=== PATIENT | male | born 1940 | race Caucasian/White ===

== ENCOUNTER 2016-08-25 17:41 | Inpatient (IN) | payer MEDICARE, OTHER ==
[~2016-08-25] VITALS: Ht 198.1 cm; Wt 83.0 kg
[2016-08-25] MEDS ORDERED: 0.9% Sodium Chloride 1,000 ML IV ONE ×3 (17:52→20:10)
--- NOTE | 2016-08-25 18:01 | ED.REPORT ---
HPI-Altered Mental Status Date of Service August 25, 2016 ED Provider: Harish Reed MD The pt is a 76 y/o male w/ a hx of a cerebellar stroke presenting to the ED complaining of pain on his R side onset this morning. He woke up this morning, took a shower, and vomited right after. He was given 2 500 mg Tylenol at 1400 to help with the pain he was experiencing in his side. Per family, he felt fine until 1630 where he began shaking from feeling cold, confused, and had an episode of vomiting. His daughter took his temperature which she reports being 97.5 degrees Fahrenheit earlier today. The pt denies pain, nausea, cough, SOB, rash, or dysuria currently. He had a bladder infection while in inpatient rehab around the 26 of July and was given levofloxacin. His family member reports his urine usually being dark because he does not enjoy drinking water. His last stroke was on the 03 of July for which he was put in the ICU for 48 hours. Nursing Notes Stated Complaint: ALTERED LOC Chief Complaint: R sided pain Nursing Notes Reviewed: Yes ([email or web address] not reconciled) Allergies: Coded Allergies: codeine (Verified Allergy, Unknown, 08/25/16) cefprozil (Verified Adverse Reaction, Severe, Nausea,Vomiting, 08/25/16) Scheduled Allopurinol (Allopurinol) 100 Mg Tablet 200 MG PO QAM Cholecalciferol (Vitamin D3) (Vitamin D3) 2,000 Unit Capsule 2,000 UNIT PO QAM Famotidine (Famotidine) 20 Mg Tablet 20 MG PO BID Folic Acid/Multivits-Min/Lut (Multi-Vitamin Gummies) 1 Each Tab.chew 2 EACH PO QAM Lisinopril (Lisinopril) 20 Mg Tablet 20 MG PO BID Magnesium Chloride (Slow-Mag) 64 Mg Tablet 128 MG PO BID Metoprolol Tartrate (Metoprolol Tartrate) 75 Mg Tablet 75 MG PO BID Thiamine Mononitrate (Vitamin B-1) 100 Mg Tablet 100 MG PO QAM General Time Seen by MD: 17:59 Chief Complaint Other (R side pain ) Hx Obtained From: Patient, Other family... Arrived By: Walk-in Sudden in Onset?: Yes Onset Occurred: 5 - 8 hours ago Recent Healthcare: Recent doctor visit, Recent hospitalization Similar Sx Previous: Yes Past Medical History Past Medical History inguinal hernia Admitted for cerebellar hemorrhage to [facility] July 2014, 1 month hospitalization and rehabilitation UTI July 2014, treated with Levaquin Past Surgical History Tonsillectomy Inguinal hernia Smoking History Unknown if Ever Smoker Social History None reported Ambulatory Status Independent Review of Systems Pain on R side Respiratory: Denies: Non-productive cough, Shortness of breath GI: Reports: Vomiting Skin: Denies Rash Neurologic: Reports: Confusion Complete sys rev & neg: except as marked. Male: Denies Dysuria Physical Exam Initial Vital Signs Vital Signs (First) Date Time Temp Pulse Resp B/P Pulse Ox O2 Delivery O2 Flow Rate FiO2 08/25/16 18:23 37.4 100 20 137/63 93 Room Air Initial VS: Reviewed, Unavailable (no vitals on chart, ordered), Vital signs abnormal (this is indicated. She had a temperature of 39.4, [email or web address] says 37.4) General/Constitutional: Awake, Alert Alertness: Positive: Confused (Slightly) Head / Eyes: Atraumatic, Normocephalic Neck: Atraumatic, Supple, Full range of motion Respiratory / Chest: Atraumatic, Breath sounds NL, Breath sounds = bilat, No respiratory distress, No rales, No rhonchi, No wheezing Cardiovascular: Heart rate NL, Regular rhythm, Heart sounds NL Neurologic: Oriented X3, Speech NL No focal deficits Abdomen: Atraumatic, Soft, Non-tender Back: Atraumatic, Full range of motion Skin: Atraumatic, Color NL, No rash, Warm, Dry Upper Extremity / MS: Atraumatic, Full range of motion Interpretation & Diagnostics Lab Results Interpretation Result Diagram: 08/25/16 1800 08/25/16 1906 Test 08/25/16 18:00 08/25/16 19:05 08/25/16 19:06 White Blood Count 14.2th/mm3 (3.8-10.1) Red Blood Count 4.23mil/mm3 (4.40-5.80) Hemoglobin 13.9g/dL (13.8-17.2) Hematocrit 40.8% (41.0-50.0) Mean Corpuscular Volume 96.5fL (81-100) Mean Corpuscular Hemoglobin 32.9pg (27.0-35.0) Mean Corpuscular Hemoglobin Concent 34.1% (32.0-37.0) Red Cell Distribution Width 13.5% (12.3-15.4) Platelet Count 197bil/L (150-400) Neutrophils (%) (Auto) 92.1% (40-74) Lymphocytes (%) (Auto) 3.9% (14-46) Monocytes (%) (Auto) 3.2% (4-12) Eosinophils (%) (Auto) 0.1% (0-5) Basophils (%) (Auto) 0.3% (0-3) Prothrombin Time 11.1sec (8.1-12.5) Prothromb Time International Ratio 1.04ratio Urine Color Yellow (YELLOW) Urine Appearance Hazy (CLEAR,HAZY) Urine pH 5.5 (5.0-8.0) Urine Specific [place] 1.025 (1.003-1.035) Urine Protein 100mg/dL (NEG,TRACE) Urine Glucose (UA) Negativemg/dL (NEGATIVE) Urine Ketones 15mg/dL (NEGATIVE) Urine Occult Blood Large (NEGATIVE) Urine Nitrite Positive (NEGATIVE) Urine Bilirubin Negative (NEGATIVE) Urine Urobilinogen Normalmg/dL (NORMAL) Urine Leukocyte Esterase Moderate (NEGATIVE) Urine RBC >50/hpf (0-2) Urine WBC >50/hpf (0-5) Urine Epithelial Cells Few/hpf (NONE-MOD) Urine Crystals None seen (NONE SEEN) Urine Bacteria Many/hpf (NONE-FEW) Urine Hyaline Casts None/lpf (NONE) Urine Granular Casts None seen (NONE SEEN) Urine Waxy Casts None seen (NONE SEEN) Urine Red Blood Cell Casts None seen (NONE SEEN) Urine White Blood Cell Casts None seen (NONE SEEN) Urine Mucus None seen (None Seen) Urine Trichomonas None seen (NONE SEEN) Urine Yeast None (NONE SEEN) Urinalysis Comment None Urine Culture Reflexed Indicated Sodium Level 140mEq/L (134-144) Potassium Level 3.8mEq/L (3.5-5.2) Chloride Level 101mEq/L (97-108) Carbon Dioxide Level 22mmol/L (18-29) Blood Urea Nitrogen 14mg/dL (8-27) Creatinine 0.89mg/dL (0.76-1.27) Estimat Glomerular Filtration Rate 89mL/min (>59) Glucose Level 188mg/dL (60-99) Lactic Acid Level 1.4mmol/L (0.4-2.0) Calcium Level 9.2mg/dL (8.5-10.1) Magnesium Level 1.3mg/dL (1.6-2.6) Total Bilirubin 0.9mg/dL (0.0-1.2) Aspartate Amino Transf (AST/SGOT) 18U/L (0-50) Alanine Aminotransferase (ALT/SGPT) 11U/L (0-44) Alkaline Phosphatase 70U/L (25-160) Troponin T < 0.010ug/L (0.0-0.011) Total Protein 5.9g/dL (6.4-8.4) Albumin 3.3g/dL (3.4-5.0) Lipase 15U/L (13-60) Procalcitonin 2.37ng/mL (0.00-0.08) Lab Results Interpretation: CBC positive leukocytosis CMP normal UA positive with all markers for infection Lactic acid normal Blood cultures 2 pending 90s and low-replacement apartment. ECG Interpretation ECG Interpretation: Rate 92 Normal sinus rhythm Q waves inferiorly, anteriorly, but no acute ischemic changes PVC No prior EKG records for comparison Time: 19:28 Interpreted by: ED physician X-Ray Chest Interpretation Chest Xray Interpretation: IMPRESSION: No acute cardiopulmonary disease process. Dictated by: Bhumika Bishop MD, PhD on 08/25/2016 at 18:55 Approved by: Bhumika Bishop MD, PhD on 08/25/2016 at 18:56 View: Portable, 1 view Interpretation / Wet Read by: Interpret - Radiologist Re-Eval/Medical Decision Med Decision/Clinical Course This is a 76-year-old male recently hospitalized at [facility] for a cerebellar hemorrhage requiring a rehabilitation stay at [facility]. He is been home for the past month. He does note that he had a UTI last month, as spouse reports he had who had been recovering okay until today, he had an episode of nausea vomiting but that has not unusual for him, and then this afternoon developed jabari rigors chills. He also describes some dysuria, urgency and frequency. The also describes waxing and waning confusion concerning for delirium. Source of Hx: Old records (none in EMR) Re-Evaluation/Progress : Time of Eval: 20:01 Re-Evaluation/Progress Note: Pt rechecked. Informed pt of need for admission. Pt understands and agrees with plan for admission. All questions addressed. Consultation : Referral / Consult Name: Sidney Chery MD Consulted With: Hospitalist Call Returned at: 19:52 Rubber Heel And Sole Press Tender: Will see patient, Agrees with eval, Agrees with plan, Accepts admit Counseled Regarding: Diagnosis, Lab results, Need for admission Patient Discharge & Departure Impression: Primary Impression: Urinary tract infection Additional Impressions: Sepsis Delirium Hypomagnesemia Disposition: ADMITTED TO HOSPITAL Discharge Condition All VS Reviewed: Yes Condition: Stable Scribe Attestation Portions of this note were transcribed by Surjit Wayne. I, Dr. Reed personally performed the history, physical exam and medical decision-making; I reviewed and confirmed the accuracy of the information in the transcribed note. Signed by : Rolando Santiago, 08/25/16 and 1855. Harish Reed MD August 25, 2016 18:01 Surjit Wayne August 25, 2016 18:17
[2016-08-25 18:21] LABS: BASOPHILS % (AUTO) 0.3 % (0-3); EOSINOPHILS % (AUTO) 0.1 % (0-5); MONOCYTES % (AUTO) 3.2 % (4-12); Mean Corpuscular Hemoglobin 32.9 pg (27.0-35.0); Mean Corpuscular Volume 96.5 fL (81-100); NEUTROPHILS % (AUTO) 92.1 % (40-74); Platelet Count 197 bil/L (150-400)
[2016-08-25 18:23] VITALS: BP 137/63; PULSE 100; RESP 20; O2SAT 93
[2016-08-25 18:41] LABS: INR 1.04 ratio
--- NOTE | 2016-08-25 18:57 | DRSVH ---
PROCEDURE: X-RAY CHEST ONE VIEW, PORTABLE ([id number]) INDICATIONS: sepsis TECHNIQUE: One view of the chest was acquired. COMPARISON: None. FINDINGS: Surgical changes and devices: None. Lungs and pleura: No pleural effusions or pneumothorax. Lungs are clear. Mediastinum: Mediastinal contours appear normal. Heart size is normal. Bones and chest wall: No suspicious bony lesions. Overlying soft tissues appear unremarkable. IMPRESSION: No acute cardiopulmonary disease process. Dictated by: Bhumika Bishop MD, PhD on 08/25/2016 at 18:55 Approved by: hBumika Bishop MD, PhD on 08/25/2016 at 18:56
[2016-08-25 19:40] VITALS: BP 115/55; PULSE 91; RESP 19; O2SAT 94
[2016-08-25 19:43] LABS: APPEARANCE,URINE HAZY (CLEAR,HAZY); COLOR,URINE YELLOW (YELLOW); OCCULT BLOOD,URINE LARGE (NEGATIVE); PH,URINE 5.5 (5.0-8.0); UROBILINOGEN,URINE NORMAL (NORMAL)
[2016-08-25] MEDS ORDERED: THIA100T64 PO (19:43)
[2016-08-25] MEDS ORDERED: CHOL200047 PO (19:43)
[2016-08-25] MEDS ORDERED: LISI-567 PO (19:43)
[2016-08-25] MEDS ORDERED: FOLI-89 PO (19:43)
[2016-08-25] MEDS ORDERED: METO75TA PO (19:43)
[2016-08-25] MEDS ORDERED: FAMO20TA4 PO (19:43)
[2016-08-25] MEDS ORDERED: SLO64 PO (19:43)
[2016-08-25] MEDS ORDERED: ZYL100 PO (19:43)
[2016-08-25 19:45] LABS: Lipase 15 U/L (13-60); Magnesium 1.3 mg/dL (1.6-2.6)
[2016-08-25] MEDS ORDERED: Magnesium Sulf 2 Gm/50mL Water 2 GM in IV Premix 1 EACH IV ONE (19:50)
[2016-08-25 19:59] LABS: TROPONIN T < 0.010 ug/L (0.0-0.011)
[2016-08-25 20:00] VITALS: BP 117/55; PULSE 92; RESP 20; O2SAT 94
[2016-08-25] MEDS ORDERED: 0.9% Sodium Chloride 1,000 ML IV SCH (20:11)
[2016-08-25] MEDS ORDERED: Polyethylene Glycol (PEG) 17 Gm Powder PO PRN (20:15)
[2016-08-25] MEDS ORDERED: Ondansetron 2 mg/mL 2 mL Inj IVPUSH PRN (20:15)
[2016-08-25] MEDS ORDERED: Alum-Mag Hydrox-Simeth 30 mL Suspension PO PRN (20:15)
--- NOTE | 2016-08-25 21:13 | PCM.HPMED ---
Subjective Date of Service August 25, 2016 Primary Provider: Admitting Physician: Primary Care Physician: Lisandro Iglesias MD Attending Physician: Admit Status: From the Emergency Department Chief Complaint: Altered mental status with R sided pain History of Present Illness: The pt is a 76 y/o male w/ recent hx of a cerebellar stroke presenting to the ED complaining of nausea and vomiting with pain on his R side, onset this morning. Associated symptoms of chills. He was given 2 500 mg Tylenol at 1400 to help with the pain he was experiencing in his side, which patient reports totally resolved before he arrived to the emergency department. Per family, he felt fine until 1630 where he began shaking from feeling cold, confused, and had an episode of vomiting. He woke up this morning, took a shower, and vomited right after, which has been happening occasionally since the stroke, but had another episode of vomiting prior to the EMS arrival.His daughter took his temperature which she reports being 97.5 degrees Fahrenheit earlier today. The pt denies pain, nausea, cough, SOB, rash, or dysuria currently. He had a bladder infection while in inpatient rehab around the 26 of July and was given levofloxacin. His family member reports his urine usually being dark because he does not enjoy drinking water. His last stroke was on the 03 of July for which he was put in the ICU for 48 hours, reports of mild ataxia but no other residual deficits. Patient was saturating at 87% on room air upon EMS arrival, started on supplemental oxygen in transit. In ED vitals temperature 37.4 pulse 100 respiratory 20 blood pressure 137/63 pulse ox 93% on room air. Labs significant for WBC 14.2 glucose 188 lactic acid normal at 1.4 magnesium at 1.3. Chest x-ray negative for any acute cardiopulmonary disease processes. UA positive for nitrites and leukocyte esterase, bacteria, occult blood. Patient admitted for further management and treatment. Review of Systems: Respiratory: Denies: Non-productive cough, Shortness of breath GI: Reports: Vomiting Skin: Denies Rash Neurologic: Reports: Confusion MSK: Denies right sided pain Male: Denies Dysuria, endorses dard urine Complete sys rev & neg: except as marked. A comprehensive review of systems has been conducted with the patient and found to be negative except what is mentioned above or in the HPI. Allergies Coded Allergies: codeine (Verified Allergy, Unknown, 08/25/16) cefprozil (Verified Adverse Reaction, Severe, Nausea,Vomiting, 08/25/16) Home Medications Allopurinol (Allopurinol) 100 Mg Tablet 200 MG PO QAM Cholecalciferol (Vitamin D3) (Vitamin D3) 2,000 Unit Capsule 2,000 UNIT PO QAM Famotidine (Famotidine) 20 Mg Tablet 20 MG PO BID Folic Acid/Multivits-Min/Lut (Multi-Vitamin Gummies) 1 Each Tab.chew 2 EACH PO QAM Lisinopril (Lisinopril) 20 Mg Tablet 20 MG PO BID Magnesium Chloride (Slow-Mag) 64 Mg Tablet 128 MG PO BID Metoprolol Tartrate (Metoprolol Tartrate) 75 Mg Tablet 75 MG PO BID Thiamine Mononitrate (Vitamin B-1) 100 Mg Tablet 100 MG PO QAM PMH Bilateral inguinal hernia at Hx of kidney stones Hx of cerebellar bleeding stroke Surgical History Tonsillectomy Family History None known. Social History Hx Substance Use: No Hx Tobacco Use: Yes Smoking Status: Former Smoker (quit 30 years ago, 25 past history) Living Arrangement: with Family (local resident) Exam Vital Signs Vital Sign - Last Date Time Temp Pulse Resp B/P Pulse Ox O2 Delivery O2 Flow Rate FiO2 08/25/16 18:23 37.4 100 20 137/63 93 Room Air Exam GEN: Awake, alert, and in no acute distress, tired appearing elderly, moderately cooperative - can name date, year, president, location HEENT: NC/AT, no sclera icterus, dry mucous membranes Neck: Supple with full ROM, no JVD Respiratory: Breath sounds normal, CTAB, no rales, rhonchi or wheezing Cardiovascular: Regular rate & rhythm, Heart sounds normal Abdomen / GI: Soft, Non-tender, no guarding or rebound MSK:no CVA tenderness Skin: Warm, Dry Neurologic: Alert, Oriented x3, Nonfocal, speech normal, sensation and strength intact throughout Psychiatric: Mood/affect normal, Behavior normal, Normal thought content Extremity: No edema Lab and Diagnostics Result Diagram: 08/25/16 1800 08/25/16 1906 X-Rays, CTs and MRIs Chest Xray Interpretation: IMPRESSION: No acute cardiopulmonary disease process. 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 Associated symptoms of chills. Patient was found to have UTI, admitted for further treatment and management. In ED vitals temperature 37.4 pulse 100 respiratory 20 blood pressure 137/63 pulse ox 93% on room air. Labs significant for WBC 14.2. glucose 188, lactic acid normal at 1.4, magnesium at 1.3. Chest x-ray negative for any acute cardiopulmonary disease processes. UA positive for nitrites and leukocyte esterase, bacteria, occult blood. Patient admitted for further management and treatment. Sepsis (WBC 14.2, P20) with source of infection found at UTI, present on admission. Acute. - Procalcitonin elevated at 2.37, repeat as needed - Urine culture pending - Ceftriaxone started - IV fluid - repeat labs in am Acute on chronic hypomagnesemia, present on admission. - Patient has been taking 128 mg of magnesium chloride twice daily - Repleted in ED, will recheck - Continue home dose Slow-Mag - repeat labs in am Delirium, present on admission. Resolved - Patient alert and oriented 3 at time of interview Chronic conditions; Hypertension - continue home meds lisinopril, metoprolol Gout - continue home meds allopurinol GERD - continue home med famotidine Hx of kidney stones Hx of cerebellar bleeding stroke Acetaminophen-fever/headache/mild/moderate pain Antiemetics, as needed Bowel regimen, as needed. REPLY REPLY ALL FORWARD Timothy as unread Patient status: Patient was admitted under inpatient status with expected length of stay greater than two midnights due to severity of presenting symptoms , risk of adverse event, and complexity of treatment plan. Pain Evaluation: Adequate Pain Control VTE Prophylaxis: Sub-Q Heparin (Unfractionated) Resuscitation Status: CPR: Attempt Resuscitation Attending Statement The patient was seen and examined together with Dr. Cohen on 08/25 and I agree with the history, exam and plan as outlined in the note above. copies to: Lisandro Iglesias MD, Fumiko O DO August 25, 2016 20:09 Sidney Chery MD August 26, 2016 01:30
[2016-08-25] MEDS ORDERED: Lidocaine 2% 6mL Topical Jelly TOPICAL ONE (21:20)
[2016-08-25 21:45] VITALS: BP 86/55; PULSE 69; RESP 20; O2SAT 94
[2016-08-25] MEDS: 0.9% Sodium Chloride 1,000 ML IV SCH (21:51)
[2016-08-25] MEDS: Sodium Chloride LOK Flush 10 mL Syringe IVFLUSH SCH (21:51)
[2016-08-25] MEDS: cefTRIAXone Inj 2,000 MG in Dextrose 5% Minibag Plus 50 ML IV SCH (22:18)
[2016-08-25] MEDS: Magnesium Chloride SR 64 mg ER24 Tablet PO SCH (23:00)
[2016-08-26] VITALS (8 sets, daily range): BP systolic 98–132; BP diastolic 57–71; PULSE 54–72; RESP 18–22; O2SAT 91–98
--- NOTE | 2016-08-26 00:24 | NUR ---
Admit Pt arrived on unit at 2140 [address] [place]. Pt ambulated from [place] to bed using 2 person assist. Pt c/o generalized weakness. At baseline uses walker to ambulate. Pt denies pain, VSS. A&Ox3. NS at 125 started, placed on tele. oriented to room and instructed to use call light for needs, pt stated understanding.
[2016-08-26 02:55] LABS: BASOPHILS % (AUTO) 0.5 % (0-3); EOSINOPHILS % (AUTO) 0 % (0-5); MONOCYTES % (AUTO) 7.9 % (4-12); Mean Corpuscular Hemoglobin 32.6 pg (27.0-35.0); Mean Corpuscular Volume 99.7 fL (81-100); NEUTROPHILS % (AUTO) 88.2 % (40-74); Platelet Count 152 bil/L (150-400)
[2016-08-26 03:28] LABS: Magnesium 1.8 mg/dL (1.6-2.6)
[2016-08-26] MEDS: 0.9% Sodium Chloride 1,000 ML IV SCH ×3 (06:27→21:05)
[2016-08-26] MEDS: Sodium Chloride LOK Flush 10 mL Syringe IVFLUSH SCH ×3 (08:17→20:20)
[2016-08-26] MEDS: Magnesium Chloride SR 64 mg ER24 Tablet PO SCH ×2 (08:18→20:19)
--- NOTE | 2016-08-26 09:16 | NUR ---
Social Work: Initial Assessment D: Per EMR review, pt is a 76 year old male admitted for sepsis. Pt is listed as self-pay but provided NURSING OFFICER with a copy of his [place] Medicare card- NURSING OFFICER provided this to registration to update info. Pt has no LTC insurance or VA benefits. PCP is Lisandro Iglesias MD. NOK and DPOA is Maureen Galvan, , . DPOA ppw completed and requested for chart. Pt declined further info from NURSING OFFICER. No Readmit Score Entered At this time. NURSING OFFICER met with pt and at bedside. Sw role explained and contact info provided. See initial assessment. Pt lives in [place] with his . He had a stroke in June and has been using a Walker for ambulation. Pt was discharged from [facility] inpatient rehab in July. Pt has never had HH and has been completing outpatient PT/OT/ST. Pt has never had skilled rehab. Pt has not been driving since his stroke and relies on his for transportation. Pt anticipates that he will be able to go home at time of discharge but accepted SNF/HH CHOICE LIST PROVIDED and is reviewing. A: Pt who lives at home with his and uses a FWW. P: Evolving; NURSING OFFICER to continue to follow and assist with discharge planning as pt's clinical status progresses. LILA Marrero Addendum: 08/26/16 at 0923 by VINAYAK SMITH SS Amended: Links added.
--- NOTE | 2016-08-26 14:11 | PCM.PNMED ---
Subjective Date of Service August 26, 2016 Subjective The pt is a 76 y/o male w/ recent hx of a cerebellar stroke presenting to the ED complaining of nausea and vomiting with pain on his R side, onset this morning. Associated symptoms of chills. He was given 2 500 mg Tylenol at 1400 to help with the pain he was experiencing in his side, which patient reports totally resolved before he arrived to the emergency department. Today is hospital day 1. He does not have nausea, vomiting, abdominal pain, dysuria, or flank pain today. He does not feel back at his usual strength. He reports that he had right flank pain when he first came to the hospital but it resolved. His reports that he had a UTI with at the SNF. She also reports that he didn't feel well, developed a fever, and then couldn't get walk because he was so weak all within 1 day. He does not wear oxygen at home and has not been diagnosed with COPD or asthma. He did use an inhaler at one point but no longer does. Exam Vital Signs Vital Sign - Last Date Time Temp Pulse Resp B/P Pulse Ox O2 Delivery O2 Flow Rate FiO2 08/26/16 12:44 37.7 67 20 132/71 97 Room Air 08/26/16 08:13 2.00 Intake and Output 08/25/16 08/25/16 08/26/16 Cumulative From/Thru 15:00 23:00 07:00 08/25/16 18:23 - 08/26/16 06:23 Intake Total 1145 ml 1145 ml Output Total 200 ml 200 ml Balance 945 ml 945 ml Intake Oral 100 ml 100 ml IV Total 1045 ml 1045 ml Output Urine Total 200 ml 200 ml # Voids 2 2 Exam GEN: Awake, alert, and in no acute distress, tired appearing elderly, cooperative HEENT: NC/AT, no sclera icterus, dry mucous membranes Neck: Supple with full ROM, no JVD Respiratory: Breath sounds normal, CTAB, no rales, rhonchi or wheezing Cardiovascular: Regular rate & rhythm, Heart sounds normal Abdomen / GI: Soft, Non-tender, no guarding or rebound MSK:no CVA tenderness Skin: Warm, Dry Neurologic: Alert, Oriented x3, Nonfocal, speech normal, sensation and strength intact throughout Psychiatric: Mood/affect normal, Behavior normal, Normal thought content Extremity: No edema IVs and Medications Medications Reviewed: Medications were reviewed in detail Lab and Diagnostics Result Diagram: 08/26/16 0240 08/26/16 0240 Microbiology Blood cultures positive for gram negative rods in 4 out of 4 bottles Urine culture positive for gram negative rods X-Rays, CTs and MRIs Chest Xray Interpretation: IMPRESSION: No acute cardiopulmonary disease process. 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 Associated symptoms of chills. Patient was found to have UTI, admitted for further treatment and management. Sepsis (WBC 14.2, P100 ) acute, with source of infection found at UTI, present on admission, active. - Procalcitonin elevated at 2.37, repeat as needed - Urine culture preliminarily shows gram negative rods and as does his blood cultures - Ceftriaxone started and will continue until culture and sensitivities are back - IV normal saline at 125 ml/hour - repeat labs in the morning Urinary tract infection, recurrent, present on admission. - UA shows positive occult blood, positive nitrite, and positive leukocyte esterase - Requested records about patient's stay at the rehabilitation center at [facility] reported having a UTI there. - Continue ceftriaxone until sensitivities are complete - Discuss with Infectious Disease on Sunday about initiating a prophylactic medication to prevent future UTIs Bacteremia, acute, present on admission. - 4 out of 4 bottles positive for gram negative rods - Continue ceftriaxone - Continue to monitor Acute hypoxic respiratory failure, present on admission, active. - Patient does not wear oxygen at home, but when he arrived at the ED, he was reported to have had an oxygen saturation of 87% on room air. - He does not have any diagnosed pulmonary conditions. He is a former smoker. - Chest x-ray did not show any acute pulmonary processes - Possibly secondary to sepsis as above - Continue to monitor Acute on chronic hypomagnesemia, present on admission, improving. - Patient has been taking 128 mg of magnesium chloride twice daily - Repleted in ED, will recheck - Continue home dose Slow-Mag - Repeat labs in am Delirium, present on admission. Resolved - Patient alert and oriented 3 at time of interview Chronic conditions: Hypertension - continue home lisinopril, metoprolol Gout - continue home allopurinol GERD - continue home famotidine Hx of kidney stones Hx of cerebellar bleeding stroke Acetaminophen-fever/headache/mild/moderate pain Antiemetics, as needed Bowel regimen, as needed. Pain Evaluation: Adequate Pain Control VTE Prophylaxis: Sub-Q Heparin (Unfractionated) Resuscitation Status: CPR: Attempt Resuscitation Attending Statement The patient was seen and examined together with Dr. Turner on 08/26/2016 and I agree with the history, exam and plan as outlined in the note above. . Rose Turner DO August 26, 2016 14:11 Farhad Concepcion MD August 26, 2016 16:37
--- NOTE | 2016-08-26 18:08 | NUR ---
Blood Cultures/POC The pt had 4/4 blood cultures come back positive for gram - growth. The pt continues to be on sepsis protocol with IV fluids and ABX. TELE has been DC'ed.
[2016-08-26] MEDS: cefTRIAXone Inj 2,000 MG in Dextrose 5% Minibag Plus 50 ML IV SCH (21:05)
[2016-08-27] VITALS (7 sets, daily range): BP systolic 122–162; BP diastolic 64–82; PULSE 60–77; RESP 16–20; O2SAT 92–98
[2016-08-27 02:45] LABS: BASOPHILS % (AUTO) 0.2 % (0-3); EOSINOPHILS % (AUTO) 1.6 % (0-5); MONOCYTES % (AUTO) 11.5 % (4-12); Mean Corpuscular Hemoglobin 32.7 pg (27.0-35.0); Mean Corpuscular Volume 99.1 fL (81-100); NEUTROPHILS % (AUTO) 79.4 % (40-74); Platelet Count 132 bil/L (150-400)
[2016-08-27 04:01] LABS: Magnesium 1.5 mg/dL (1.6-2.6)
[2016-08-27] MEDS: 0.9% Sodium Chloride 1,000 ML IV SCH ×3 (06:40→21:08)
[2016-08-27] MEDS: Sodium Chloride LOK Flush 10 mL Syringe IVFLUSH SCH ×2 (08:30→15:45)
[2016-08-27] MEDS: Magnesium Chloride SR 64 mg ER24 Tablet PO SCH ×2 (08:51→20:06)
[2016-08-27] MEDS ORDERED: Magnesium Sulf 4 Gm/100 mL H2O 4 GM in IV Premix 1 EACH IV ONE (12:10)
--- NOTE | 2016-08-27 12:49 | PCM.PNMED ---
Subjective Date of Service August 27, 2016 Subjective Hosp day 2: No events overnight. Denies complaints at this time. Spouse is concerned regarding ability to care for him at home. ROS otherwise neg. Exam Vital Signs Vital Sign - Last Date Time Temp Pulse Resp B/P Pulse Ox O2 Delivery O2 Flow Rate FiO2 08/27/16 08:48 36.4 77 20 122/64 96 Room Air 08/26/16 08:13 2.00 Intake and Output 08/26/16 08/26/16 08/27/16 Cumulative From/Thru 15:00 23:00 07:00 08/25/16 18:23 - 08/27/16 05:44 Intake Total 510 ml 2513 ml 4168 ml Output Total 840 ml 1200 ml 2240 ml Balance -330 ml 1313 ml 1928 ml Intake Oral 510 ml 200 ml 810 ml IV Total 2313 ml 3358 ml Output Urine Total 840 ml 1200 ml 2240 ml # Voids 2 Exam GEN: Awake, alert, and in no acute distress, tired appearing elderly, cooperative HEENT: NC/AT, no sclera icterus, dry mucous membranes Neck: Supple with full ROM, no JVD Respiratory: Breath sounds normal, CTAB, no rales, rhonchi or wheezing Cardiovascular: Regular rate & rhythm, Heart sounds normal Abdomen / GI: Soft, Non-tender, no guarding or rebound MSK:no CVA tenderness Skin: Warm, Dry Neurologic: Alert, Oriented x3, Nonfocal, speech normal, sensation and strength intact throughout Psychiatric: Mood/affect normal, Behavior normal, Normal thought content Extremity: No edema Lab and Diagnostics Result Diagram: 08/27/16 0230 08/27/16 0230 Microbiology Blood cultures positive for gram negative rods in 4 out of 4 bottles Urine culture positive for gram negative rods X-Rays, CTs and MRIs Chest Xray Interpretation: IMPRESSION: No acute cardiopulmonary disease process. 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 Associated symptoms of chills. Patient was found to have UTI, admitted for further treatment and management. Hospital day 2 Sepsis (WBC 14.2, P100 ) acute, with source of infection found at UTI, present on admission, active. - Procalcitonin elevated with peak of 11.5 - Urine culture shows Klebsiella - Ceftriaxone started and will continue as the Klebsiella is sensitive to this - IV normal saline at 125 ml/hour stopped as by mouth intake is appropriate. - repeat labs in the morning Urinary tract infection, recurrent, present on admission. - UA shows positive occult blood, positive nitrite, and positive leukocyte esterase - Requested records about patient's stay at the rehabilitation center at [facility]: Klebsiella UTI treated with Levaquin (not sure sensitivities as that was not included in the report) - Continue ceftriaxone as above - Discuss with Infectious Disease on Sunday about initiating a prophylactic medication to prevent future UTIs Bacteremia, acute, present on admission. - 4 out of 4 bottles positive for gram negative rods (some suspicion that these will be Klebsiella) - Continue ceftriaxone - Continue to monitor Acute hypoxic respiratory failure, present on admission, active. - Patient does not wear oxygen at home, but when he arrived at the ED, he was reported to have had an oxygen saturation of 87% on room air. - He does not have any diagnosed pulmonary conditions. He is a former smoker. - Chest x-ray did not show any acute pulmonary processes - Possibly secondary to sepsis as above - Continue to monitor Acute on chronic hypomagnesemia, present on admission, improving. - Patient has been taking 128 mg of magnesium chloride twice daily - Repleted in ED, and again today, we will recheck tomorrow - Continue home dose Slow-Mag - Repeat labs in am Delirium, present on admission. Resolved - Patient alert and oriented 3 at time of interview Chronic conditions: Hypertension - continue home lisinopril, metoprolol Gout - continue home allopurinol GERD - continue home famotidine Hx of kidney stones Hx of cerebellar bleeding stroke Acetaminophen-fever/headache/mild/moderate pain Antiemetics, as needed Bowel regimen, as needed. Patient is admitted under inpatient status with expected length of stay greater than 2 midnights due to severity of presenting symptoms, risk of adverse event, and complexity of treatment plan. Anticipate discharge from the hospital in 1-2 days. Pain Evaluation: Adequate Pain Control VTE Prophylaxis: Sub-Q Heparin (Unfractionated) Resuscitation Status: CPR: Attempt Resuscitation Attending Statement The patient was seen and examined together with Dr. Juarez on 08/27/2016 and I agree with the history, exam and plan as outlined in the note above. . Roge Newby DO August 27, 2016 12:49 Farhad Concepcion MD August 28, 2016 14:57
--- NOTE | 2016-08-27 16:28 | NUR ---
[facility] Signed
[2016-08-27] MEDS: cefTRIAXone Inj 2,000 MG in Dextrose 5% Minibag Plus 50 ML IV SCH (21:08)
[2016-08-28 04:13] VITALS: BP 159/84; PULSE 70; RESP 20; O2SAT 93
[2016-08-28] MEDS: 0.9% Sodium Chloride 1,000 ML IV SCH ×3 (06:23→20:11)
[2016-08-28 08:06] LABS: MONOCYTES % (AUTO) 10.9 % (4-12); Mean Corpuscular Hemoglobin 32.3 pg (27.0-35.0); Mean Corpuscular Volume 98.2 fL (81-100); NEUTROPHILS % (AUTO) 76.7 % (40-74); Platelet Count 136 bil/L (150-400)
[2016-08-28 08:07] LABS: BASOPHILS % (AUTO) 0.2 % (0-3); EOSINOPHILS % (AUTO) 2.1 % (0-5)
[2016-08-28 08:18] LABS: Magnesium 1.6 mg/dL (1.6-2.6); Phosphorus 2.6 mg/dL (2.5-4.9)
[2016-08-28] MEDS: Sodium Chloride LOK Flush 10 mL Syringe IVFLUSH SCH ×3 (08:58→16:30)
[2016-08-28] MEDS: Magnesium Chloride SR 64 mg ER24 Tablet PO SCH ×2 (09:04→20:14)
[2016-08-28] MEDS ORDERED: Potassium Chloride 20 mEq SR Tablet PO ONE (10:45)
[2016-08-28] MEDS ORDERED: KCl 40 mEq/D5W 500 mL 40 MEQ in IV Premix 500 EACH IV ONE (10:45)
--- NOTE | 2016-08-28 14:13 | NUR ---
Pt off floor for CT KUB via WC
--- NOTE | 2016-08-28 14:38 | DRSVH ---
PROCEDURE: CT KUB ([id number]) INDICATIONS: eval urinary tract TECHNIQUE: Noncontrast 5 mm thick sections acquired from the diaphragms to the symphysis. 5 mm thick coronal an d sagittal reformats were then performed. For radiation dose reduction, the following was used: aut omated exposure control, adjustment of mA and/or kV according to patient size. COMPARISON: None. FINDINGS: Image quality: Excellent. Lung bases: Small right greater than left pleural effusions are present. Mild bibasilar interstitial pulmonary opacity is present, consistent with edema versus atypical pneumonia. Urinary system: Both kidneys are normal in size. There is a nonobstructing 2 mm diameter calculus wi thin the superior pole right kidney. 3 mm diameter nonobstructing calculus in the inferior pole left kidney. 2 mm diameter nonobstructing calculus within the left interpolar kidney. No left hydronephros is. There is mild left ureteral dilatation. There is a 5 mm diameter calculus within the proximal lef t ureter. There is mild right hydronephrosis. Mild diffuse right ureteral dilatation is present. Ther e is a 5 mm diameter calculus within the right distal ureter, with Hounsfield units of 385. Urinary b ladder is contracted; no calcified bladder stones. Other solid organs: Liver and spleen are normal in size. Gallbladder is contracted. Pancreas is no rmal in contours. No adrenal nodules. Peritoneum and bowel: There is a 52 mm long segment of small bowel-small bowel intussusception withi n the left anterior pelvis. No evidence of associated bowel strangulation, nor obstruction is present . Unenhanced bowel loops demonstrate otherwise normal wall thickness and caliber. No free fluid or a ir. Nodes and vessels: No retroperitoneal or mesenteric adenopathy by size criteria. Aorta and inferior vena cava are normal in caliber. Abdominal wall: No ventral hernias. Pelvis: No free pelvic fluid. No inguinal hernias or adenopathy. Bones: No suspicious bony lesions. No vertebral body compression fractures. IMPRESSION: 1. Bilateral ureteral calculi, causing mild left ureteral dilatation, and mild right hydronephrosis. 2. Nonobstructing bilateral intrarenal calculi. 3. Small bilateral pleural effusions. Bibasilar interstitial pulmonary opacity, consistent with edema versus atypical pneumonia. 4. Short segment of small bowel to small bowel intussusception within the left hemipelvis, likely a t ransient, incidental phenomenon, given the lack of concurrent bowel obstruction. Close clinical foll owup is recommended with repeat imaging if clinically warranted. Dictated by: Aimee Weber M.D. on 08/28/2016 at 14:32 Approved by: Aimee Weber M.D. on 08/28/2016 at 14:37
[2016-08-28 15:18] VITALS: BP 173/84; PULSE 61; RESP 22; O2SAT 94
--- NOTE | 2016-08-28 16:48 | NUR ---
Ambulation Pt denies pain, SOB, and reports minor weakness. Uses roller walker at home as baseline. 1P assist with FWW around unit - 1x. Pt able to tolerate ambulation. Slightly unsteady on feet, appears weak but able to tolerate without incident. Pt did not use FWW appropriately, tended to let the walker get out in front of him especially when turning. Instructed pt on correct use. Pt reports he is not used to the FWW. Pt is slow but ambitious and denies SOB but its apparent that breathing is more labored and a little out of breath when getting back to bed. Continuing to keep pt as 1P assist for safety, [facility] RADAR OPERATOR/NAVIGATOR updated.
--- NOTE | 2016-08-28 17:22 | CONS ---
[address] [address] CONSULTATION REPORT PATIENT: DANIELA CRUZ : 1940 MR#: [id number] ADMIT: 08/25/2016 JOB ID: [id number] DATE OF SERVICE: 08/28/[address] Coffey for this timely consult. REASON FOR CONSULTATION: Elderly gentleman with recurrent UTI associated with encephalopathy. 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 Following that CVA, the patient was no longer able to walk normally and instead has been relying on a walker. Otherwise, he has been fairly functional. Before he even left the rehab at [facility], he had developed a Klebsiella pneumoniae urinary tract infection. This was apparently not associated with Morrow catheter as he did not have one, by his and his 's report. He was treated with 10 days of oral levofloxacin to which the organism was exquisitely sensitive with resolution of his symptoms, and then discharged home. For about a month or so, the patient did well at home but on Sunday, August 25, he abruptly developed fevers, chills, weakness, confusion and dysuria. According to his , these symptoms started with over just a period of hours and were associated with some right flank pain. Because the symptoms were so dramatic, his could not even get him to the car to bring him to the hospital and so summoned 911. The patient was admitted here with the presumptive diagnosis of sepsis due to a complicated urinary tract infection and, in fact, both urine and blood have now grown Klebsiella pneumoniae which by antibiogram appears to be the same organism as the one he had about 30 days ago in [place]. The patient notes that he has a distant history of nephrolithiasis, but this has not troubled him in decades. As far as he is aware, he has no issues with his prostate or renal collecting system. He saw a urologist in the distant past for his kidney stones, but this has not been within the past decade or so. The patient now reports he is feeling steadily better while receiving IV ceftriaxone which is now on his third day. His mental status is clear. He no longer has fevers, chills. No headache, no significant GI symptoms. No nausea, vomiting. He still has some mild ongoing dysuria, however. He feels close to his normal state of health and is already wondering when he might reasonably be discharged. PAST MEDICAL HISTORY: 1. Cerebellar CVA, June 2016. 2. History of a Klebsiella pneumonia UTI, July 2016. 3. Nephrolithiasis, 2004. 4. History of AFib which seems to have been documented right around the time he was found with this cerebellar hemorrhagic CVA. 5. Hypertension. 6. GERD. 7. Gout. SOCIAL HISTORY: The patient is a nonsmoker. Previous alcohol consumer, unknown quantity. He has never lived outside the [place]. FAMILY HISTORY: Negative for TB in first and second-degree relatives. REVIEW OF SYSTEMS: No current headache. He has chronic irritation, redness, watering and irritation of his left eye which is longstanding and has not changed for better or for worse recently. No sores in the mouth. No trouble swallowing. No cough, shortness of breath chest pain. No nausea, vomiting, diarrhea. Currently still has some mild residual dysuria. He did have right flank pain initially; that has resolved. No new or different symptoms in his extremities including no symptoms of arthritis which are new. No swelling. Remainder of the review of systems is negative. PHYSICAL EXAMINATION: Reveals an afebrile gentleman, temperature 36.8, pulse 70, respiratory rate 20, blood pressure 159/84. He is in no acute distress. He notes that the patient has been afebrile throughout his hospital stay. The patient is awake and alert. His left eye has some degree of what appears to be ptosis and is erythematous, but he reports that is chronic. Examination of the head reveals no trauma. The nose is normal. Oral cavity: No thrush or hairy leukoplakia. No pharyngitis is seen. Neck without adenopathy. No obvious JVD. Lungs clear. Cardiac tones: Regular rate and rhythm without significant murmur. Abdomen soft, nontender, no flank tenderness at this point. No suprapubic fullness or tenderness. He does not have a Morrow catheter. No inguinal adenopathy. Extremities without edema, cyanosis, clubbing, rash, synovitis or any other notable abnormality. He has reasonable strength in both lower extremities. The remainder of the physical exam unremarkable. LABORATORIES: Include white count was 42126, now 9000 and normal. Diff essentially normal at this point. Creatinine 0.59. LFTs normal. Pro calcitonin was as high as 11.5, now down to 4. Urinalysis was packed with white cells and grew Klebsiella, apparently the same Klebsiella grew from multiple blood cultures on admission as well. In fact, grew from 4/4 blood cultures on admission. Repeat blood cultures are pending but probably not necessary in this circumstance. Chest x-ray shows no acute infiltrate. IMPRESSION: This is an unfortunate gentleman who suffered a stroke two months ago and then had a Klebsiella pneumonia urinary tract infection while in rehabilitation last month which was apparently not associated with the Morrow catheter. His urinary tract infection has now recurred with the same organism which raises questions about structural abnormalities in his urinary tract such as stones, infected cysts, renal abscesses, strictures, perinephric abscess and other possible processes where an organism could "hide" through a period of what should have been a very effective oral antibiotic therapy. RECOMMENDATIONS: 1. We have ordered a CT-KUB to better delineate the anatomy of the kidneys, ureters and bladder. 2. We can switch the antibiotics to Cipro 500 b.i.d. with the plan to go 10 additional days from now, which would take us through about September 09. 3. The patient should see a urologist. Note that his urologist was Dr. Murphy who is retired and has been replaced by Dr. Jeferson bahena at [facility] and that we advised the patient to contact him when he is discharged. 4. Will continue to follow this patient with you with respect to the followup of the CT-KUB.
--- NOTE | 2016-08-28 19:14 | PCM.PNMED ---
Subjective Date of Service August 28, 2016 Subjective Denies any new issues/complaints Exam Vital Signs Vital Sign - Last Date Time Temp Pulse Resp B/P Pulse Ox O2 Delivery O2 Flow Rate FiO2 08/28/16 15:18 37.2 61 22 173/84 94 Room Air 08/26/16 08:13 2.00 Intake and Output 08/27/16 08/27/16 08/28/16 Cumulative From/Thru 15:00 23:00 07:00 08/25/16 18:23 - 08/28/16 06:25 Intake Total 720 ml 3136 ml 8024 ml Output Total 1690 ml 1175 ml 5105 ml Balance -970 ml 1961 ml 2919 ml Intake Oral 250 ml 1060 ml IV Total 720 ml 2886 ml 6964 ml Output Urine Total 1690 ml 1175 ml 5105 ml # Voids 2 General: Alert, Cooperative, No Acute Distress Eyes: Scleral Anicteric Mouth: Mucous Membr Moist/[place] Neck: Supple Chest & Lungs: Chest Wall Normal, Clear to auscultation & percussion Cardiovascular: Regular Rate/Rhythm Abdomen: Non-tender, Non-distended, Normoactive bowel tones, Soft Extremities: No cyanosis/clubbing/edma bilat Neurological: Grossly Neurologically Intact, Normal Speech IVs and Medications Medications Reviewed: Medications were reviewed in detail Lab and Diagnostics Result Diagram: 08/28/1618 08/28/1618 Microbiology Blood cultures positive for gram negative rods in 4 out of 4 bottles Urine culture positive for gram negative rods X-Rays, CTs and MRIs Chest Xray Interpretation: IMPRESSION: No acute cardiopulmonary disease process. 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 Associated symptoms of chills. Patient was found to have UTI, admitted for further treatment and management. # Acute Sepsis (WBC 14.2, P100 ), with source of infection found at UTI, present on admission, active. - Urine culture show Klebsiella - Ceftriaxone since admission - ID consulted today. Will followup with recommendations # Acute Urinary tract infection, recurrent, present on admission. - UA shows positive occult blood, positive nitrite, and positive leukocyte esterase - Requested records about patient's stay at the rehabilitation center at [facility]: Klebsiella UTI treated with Levaquin (not sure sensitivities as that was not included in the report) - Continue ceftriaxone as above - ID Consulted today. Will f/u # Bacteremia, acute, present on admission. - 4 out of 4 bottles positive for gram negative rods (some suspicion that these will be Klebsiella) - Abx and ID consult as noted above # Acute hypoxic respiratory failure, present on admission, improved - Patient does not wear oxygen at home, but when he arrived at the ED, he was reported to have had an oxygen saturation of 87% on room air. - He does not have any diagnosed pulmonary conditions. He is a former smoker. - Chest x-ray did not show any acute pulmonary processes - Possibly secondary to sepsis as above - Continue to monitor # Acute on chronic hypomagnesemia, present on admission, improving. - Patient has been taking 128 mg of magnesium chloride twice daily - Replete and followup # Acute Delirium, present on admission. Resolved - Patient alert and oriented 3 at time of interview # Hypertension. stable - continue home lisinopril, metoprolol # Gout - continue home allopurinol # GERD - continue home famotidine # History of kidney stones # History of cerebellar bleeding stroke Dispo: 1-2 days VTE Prophylaxis: Sub-Q Heparin (Unfractionated) Resuscitation Status: CPR: Attempt Resuscitation Arun Coffey August 28, 2016 19:14
[2016-08-28 22:18] VITALS: BP 174/92; PULSE 62; RESP 14; O2SAT 93
[2016-08-29] MEDS: Sodium Chloride LOK Flush 10 mL Syringe IVFLUSH SCH ×2 (00:08→08:30)
[2016-08-29] MEDS: 0.9% Sodium Chloride 1,000 ML IV SCH ×2 (04:11→11:20)
[2016-08-29 04:56] VITALS: BP 178/85; PULSE 68; RESP 14; O2SAT 93
[2016-08-29 07:16] LABS: Mean Corpuscular Hemoglobin 31.9 pg (27.0-35.0); Mean Corpuscular Volume 95.5 fL (81-100)
[2016-08-29 07:30] LABS: Magnesium 1.5 mg/dL (1.6-2.6)
[2016-08-29] MEDS ORDERED: Potassium Chloride 20 mEq SR Tablet PO ONE (08:15)
[2016-08-29] MEDS ORDERED: Magnesium Sulf 2 Gm/50mL Water 2 GM in IV Premix 1 EACH IV ONE (08:15)
[2016-08-29] MEDS: Magnesium Chloride SR 64 mg ER24 Tablet PO SCH (08:50)
--- NOTE | 2016-08-29 10:22 | NUR ---
SW - Readiness for Discharge Data: Pt is on day 4 of hospitalization for sepsis. Per morning rounds pt is likely to discharge home with PO antibiotics. Pt has a walker which he uses at baseline. Pt likely to discharge home with via POV. No needs assessed. SW will continue to follow. Assessment: Pt who is independent at baseline. Plan: Pt likely to discharge home today via POV and PO abx. No needs assessed. SW will continue to follow. LILA Archuleta
[2016-08-29] MEDS ORDERED: CIPR-231 PO (12:22)
--- NOTE | 2016-08-29 12:33 | NUR ---
SW - Discharge Data: Pt is on day 4 of hospitalization for sepsis. Pt is medically cleared to discharge home with PO antibiotics. Pt has a walker which he uses at baseline. Pt to discharge home with via POV. No needs assessed. Assessment: Pt who is independent at baseline. Plan: Pt to discharge home today via POV and PO abx. No needs assessed. LILA Archuleta
--- NOTE | 2016-08-29 12:34 | PCM.DIMED ---
Discharge Instructions Date of Service August 29, 2016 Dates of Hospitalization August 25, 2016 at 20:32 Discharge Diagnosis Discharge Diagnosis # Acute Sepsis with source of infection UTI and bacteremia, present on admission. Clinically resolved. # Acute Klebsiella urinary tract infection (UTI), recurrent, present on admission. # Acute Klebsiella bacteremia, present on admission. # Acute delirium and possible toxic encephalopathy due to above infection, present on admission. Resolved # Acute hypoxic respiratory failure, present on admission. Resolved. - Chest x-ray did not show any acute pulmonary processes - Possibly secondary to sepsis as above # History of kidney stones, ongoing # Acute on chronic hypomagnesemia, present on admission # Chronic hypertension. # Gout. stable. # Chronic GERD. Stable. # History of cerebellar bleeding stroke Diet Discharge Diet: Low fat, Low Sodium, Heart Healthy Activity Discharge Activity: Other (resume home health PT) Call your provider Call your provider for: Fever or Chills, Shortness of breath, Bleeding, Excessive diarrhea Patient Instructions Patient Instructions Seek immediate medical attention if any new or worsening signs or symptoms occur. Follow-up plan 1. Followup with primary care provider in 7-10 days 2. Followup with urology (Jennifer Herrera PA-C) on 09/07/16 at 1:[address] [id number] Follow-up Provider: Lisandro Iglesias MD Mid-level Provider (F9): Jennifer Herrera PA-C Follow-up with Mid-level in: Other (09/07/16 at 1:15 PM) Arun Coffey August 29, 2016 12:34
--- NOTE | 2016-08-29 12:36 | PROG NOTE ---
[address] [address] PROGRESS NOTE PATIENT: DANIELA CRUZ : 1940 MR#: [id number] ADMIT: 08/25/2016 JOB ID: [id number] INFECTIOUS DISEASE FOLLOWUP: DATE: 08/29/2016 REASON FOR FOLLOWUP: Complicated urinary tract infection with encephalopathy. INTERVAL HISTORY: Recall, this is a gentleman we saw in consult yesterday who has now suffered two consecutive significant urinary tract infections with Klebsiella. The patient is now rapidly recovering and states he is feeling close to his normal state of health. He was switched from IV ceftriaxone to oral Cipro in the past 24 hours and is tolerating the therapy well. No additional fevers, chills, sweats. No cough, shortness of breath, chest pain. No flank pain. No dysuria. PHYSICAL EXAMINATION: Reveals an afebrile gentleman, in no acute distress. He has been afebrile really since admission four days ago. Temp 36.8, pulse 68, respiratory rate 14, blood pressure 178/85. He is saturating well on room air. Mental status is noted as sharp. Oral cavity negative. Lungs quite clear. Cardiac tones without new murmur. No flank tenderness is noted. No skin rash. LABORATORY DATA: Include white count 9800, platelets 164; they have recovered to normal. Creatinine 0.6. Procalcitonin steadily declining; it was 11.5 two days ago, 4.2 yesterday, 2.4 today. Those declining basically by half per day consistent with a good response. Urine had greater than 50 white cells. Urine culture grew Klebsiella pneumonia which was sensitive to a wide variety of agents including exquisitely sensitive to Cipro. Blood cultures also grew Klebsiella pneumonia on the . Followup blood cultures from yesterday are negative. Those positive blood cultures from the also grew Klebsiella pneumonia which was very sensitive to Cipro which was the same organism that was isolated during admission last month in [place]. IMAGING PROCEDURE: CT scan of the kidneys, urine and bladder done overnight showed bilateral ureteral calculi, especially on the left where there is some left ureteral dilatation and there is also some mild right hydronephrosis. Nonobstructing bilateral intrarenal stones are also noted. Small bilateral pleural effusions are also seen. IMPRESSION: This is a gentleman who suffered a significant Klebsiella pneumoniae complicated urinary tract infection which resulted in his hospitalization last month in [place] and this month it has recurred with apparently the same organism and same antimicrobial susceptibilities. Our investigation for causes of this recurrent urinary tract infection has found that the patient has bilateral renal stones and some degree of right hydronephrosis which probably explains the recurrent urinary tract infections. At this point, he has been successfully transitioned to oral Cipro which will be excellent therapy for this bacteremic infection. RECOMMENDATIONS: 1. The patient can be discharged on oral Cipro 500 b.i.d. today to complete two weeks of total therapy. 2. The patient needs to be seen by Urology before he completes this course of ceftriaxone to see if there should be some attempt made to relieve the ureteral and renal obstructions on the left and right side, respectively, and do something about the stones. 3. From an Infectious Disease point of view, the patient could be discharged today and we are going to go ahead and sign off. Thank you very much for this consult.
[2016-08-29 14:04] VITALS: BP 168/81; PULSE 62; RESP 18; O2SAT 94
--- NOTE | 2016-08-29 14:15 | NUR ---
Discharge Patient departed unit via wheelchair, accompanied by staff and . Patient alert and oriented at time of discharge. Patient stand by assist in room with a front wheel walker prior to discharge and will follow up with out patient physical therapy. Patient nutritional intake good, eating 95% of meals and fluid intake also adequate. Patient denies chest discomfort/pain, shortness of breath, abdominal discomfort, nausea or difficulty with elimination and reports a bowel movement today. Patient denies current pain. Discharge instructions/medications reviewed with patient prior to discharge. All questions addressed. Patient belongings, discharge instructions and prescriptions in hand.
--- NOTE | 2016-08-29 19:25 | PCM.DC.MED ---
Discharge Summary Date of Service August 29, 2016 Dates of Hospitalization Date of Hospital Admission August 25, 2016 at 20:32 Date of Discharge: August 29, 2016 Providers: Admitting Physician: Sidney Chery MD Primary Care Physician: Lisandro Iglesias MD Attending Physician: Sidney Chery MD Diagnosis at Time of Discharge Diagnosis at Time of Discharge # Acute Sepsis with source of infection UTI and bacteremia, present on admission. Clinically resolved. # Acute Klebsiella urinary tract infection (UTI), recurrent, present on admission. # Acute Klebsiella bacteremia, present on admission. # Acute delirium and possible toxic encephalopathy due to above infection, present on admission. Resolved # Acute hypoxic respiratory failure, present on admission. Resolved. - Chest x-ray did not show any acute pulmonary processes - Possibly secondary to sepsis as above # History of kidney stones, ongoing # Acute on chronic hypomagnesemia, present on admission # Chronic hypertension. # Gout. stable. # Chronic GERD. Stable. # History of cerebellar bleeding stroke Consultations 1. ID Procedures XRay, CTs & MRIs Chest Xray Interpretation: IMPRESSION: No acute cardiopulmonary disease process. Dictated by: Bhumika Bishop MD, PhD on 08/25/2016 at 18:55 Approved by: Bhumika Bishop MD, PhD on 08/25/2016 at 18:56 View: Portable, 1 view Interpretation / Wet Read by: Interpret - Radiologist Date of Service: 08/28/16 1349 PROCEDURE: CT KUB ([id number]) IMPRESSION: 1. Bilateral ureteral calculi, causing mild left ureteral dilatation, and mild right hydronephrosis. 2. Nonobstructing bilateral intrarenal calculi. 3. Small bilateral pleural effusions. Bibasilar interstitial pulmonary opacity, consistent with edema versus atypical pneumonia. 4. Short segment of small bowel to small bowel intussusception within the left hemipelvis, likely a transient, incidental phenomenon, given the lack of concurrent bowel obstruction. Close clinical followup is recommended with repeat imaging if clinically warranted. Dictated by: Aimee Weber M.D. on 08/28/2016 at 14:32 Approved by: Aimee Weber M.D. on 08/28/2016 at 14:37 Brief History 76 y/o male w/ recent hx of a cerebellar stroke with mild ataxia as residual deficit, presenting to the ED complaining of nausea and vomiting with pain on his R side. Associated symptoms of chills. Patient was found to have UTI, admitted for further treatment and management. Hospital Course # Acute Sepsis (WBC 14.2, P100 ), with source of infection found at UTI, present on admission, active. - Urine culture show Klebsiella - Ceftriaxone since admission - ID consulted and per recommendation discharged on oral Cipro 500 b.i.d. today to complete two weeks of total therapy. - Per ID: "patient needs to be seen by Urology before he completes this course of ceftriaxone to see if there should be some attempt made to relieve the ureteral and renal obstructions on the left and right side, respectively, and do something about the stones." # Acute Urinary tract infection, recurrent, present on admission. - Abx as noted above # Bacteremia, acute, present on admission. - 4 out of 4 bottles positive for Klebsiella - Abx and ID consult as noted above # Acute hypoxic respiratory failure, present on admission, Resolved - Patient does not wear oxygen at home, but when he arrived at the ED, he was reported to have had an oxygen saturation of 87% on room air. - He does not have any diagnosed pulmonary conditions. He is a former smoker. - Chest x-ray did not show any acute pulmonary processes - Possibly secondary to sepsis as above # Acute on chronic hypomagnesemia, present on admission, Repleted prior to discharge # Acute Delirium, present on admission. Resolved - Patient alert and oriented 3 at time of interview # Hypertension. stable - continue home lisinopril, metoprolol # Gout - continue home allopurinol # GERD - continue home famotidine # History of kidney stones # History of cerebellar bleeding stroke Exam Vital Signs (Last) Date Time Temp Pulse Resp B/P Pulse Ox O2 Delivery O2 Flow Rate FiO2 08/29/16 14:04 36.7 62 18 168/81 94 Room Air 08/26/16 08:13 2.00 Exam General: Alert, Cooperative, No Acute Distress Eyes: Scleral Anicteric Mouth: Mucous Membr Moist/[place] Neck: Supple Chest & Lungs: Chest Wall Normal, Clear to auscultation & percussion Cardiovascular: Regular Rate/Rhythm Abdomen: Non-tender, Non-distended, Normoactive bowel tones, Soft Extremities: No cyanosis/clubbing/edma bilat Neurological: Grossly Neurologically Intact, Normal Speech Test 08/25/16 18:00 08/25/16 19:05 08/25/16 19:06 08/27/16 02:30 Prothrombin Time 11.1sec (8.1-12.5) Prothromb Time International Ratio 1.04ratio Urine Color Yellow (YELLOW) Urine Appearance Hazy (CLEAR,HAZY) Urine pH 5.5 (5.0-8.0) Urine Specific [place] 1.025 (1.003-1.035) Urine Protein 100mg/dL (NEG,TRACE) Urine Glucose (UA) Negativemg/dL (NEGATIVE) Urine Ketones 15mg/dL (NEGATIVE) Urine Occult Blood Large (NEGATIVE) Urine Nitrite Positive (NEGATIVE) Urine Bilirubin Negative (NEGATIVE) Urine Urobilinogen Normalmg/dL (NORMAL) Urine Leukocyte Esterase Moderate (NEGATIVE) Urine RBC >50/hpf (0-2) Urine WBC >50/hpf (0-5) Urine Epithelial Cells Few/hpf (NONE-MOD) Urine Crystals None seen (NONE SEEN) Urine Bacteria Many/hpf (NONE-FEW) Urine Hyaline Casts None/lpf (NONE) Urine Granular Casts None seen (NONE SEEN) Urine Waxy Casts None seen (NONE SEEN) Urine Red Blood Cell Casts None seen (NONE SEEN) Urine White Blood Cell Casts None seen (NONE SEEN) Urine Mucus None seen (None Seen) Urine Trichomonas None seen (NONE SEEN) Urine Yeast None (NONE SEEN) Urinalysis Comment None Urine Culture Reflexed Indicated Lactic Acid Level 1.4mmol/L (0.4-2.0) Troponin T < 0.010ug/L (0.0-0.011) Lipase 15U/L (13-60) Total Bilirubin 0.3mg/dL (0.0-1.2) Aspartate Amino Transf (AST/SGOT) 17U/L (0-50) Alanine Aminotransferase (ALT/SGPT) 10U/L (0-44) Alkaline Phosphatase 52U/L (25-160) Total Protein 5.0g/dL (6.4-8.4) Albumin 2.9g/dL (3.4-5.0) Test 08/28/16 07:18 08/29/16 07:00 Neutrophils (%) (Auto) 76.7% (40-74) Lymphocytes (%) (Auto) 9.9% (14-46) Monocytes (%) (Auto) 10.9% (4-12) Eosinophils (%) (Auto) 2.1% (0-5) Basophils (%) (Auto) 0.2% (0-3) Phosphorus Level 2.6mg/dL (2.5-4.9) White Blood Count 9.8th/mm3 (3.8-10.1) Red Blood Count 3.76mil/mm3 (4.40-5.80) Hemoglobin 12.0g/dL (13.8-17.2) Hematocrit 35.9% (41.0-50.0) Mean Corpuscular Volume 95.5fL (81-100) Mean Corpuscular Hemoglobin 31.9pg (27.0-35.0) Mean Corpuscular Hemoglobin Concent 33.4% (32.0-37.0) Red Cell Distribution Width 13.2% (12.3-15.4) Platelet Count 164bil/L (150-400) Sodium Level 138mEq/L (134-144) Potassium Level 3.8mEq/L (3.5-5.2) Chloride Level 101mEq/L (97-108) Carbon Dioxide Level 25mmol/L (18-29) Blood Urea Nitrogen 7mg/dL (8-27) Creatinine 0.60mg/dL (0.76-1.27) Estimat Glomerular Filtration Rate 140mL/min (>59) Glucose Level 117mg/dL (60-99) Calcium Level 8.7mg/dL (8.5-10.1) Magnesium Level 1.5mg/dL (1.6-2.6) Procalcitonin 2.42ng/mL (0.00-0.08) Microbiology Results Blood cultures positive for gram negative rods in 4 out of 4 bottles Urine culture positive for gram negative rods Discharge Medications Discharge Medications Allopurinol (Allopurinol) 100 Mg Tablet 200 MG PO QAM (Reported) Cholecalciferol (Vitamin D3) (Vitamin D3) 2,000 Unit Capsule 2,000 UNIT PO QAM ( Reported) Ciprofloxacin (Cipro) 500 Mg Tablet 500 MG PO BID Prescribed by: SIRISHA GARAY MD Famotidine (Famotidine) 20 Mg Tablet 20 MG PO BID (Reported) Folic Acid/Multivits-Min/Lut (Multi-Vitamin Gummies) 1 Each Tab.chew 2 EACH PO QAM (Reported) Lisinopril (Lisinopril) 20 Mg Tablet 20 MG PO BID (Reported) Magnesium Chloride (Slow-Mag) 64 Mg Tablet 128 MG PO BID (Reported) Metoprolol Tartrate (Metoprolol Tartrate) 75 Mg Tablet 75 MG PO BID (Reported) Thiamine Mononitrate (Vitamin B-1) 100 Mg Tablet 100 MG PO QAM (Reported) Followup Plan Follow-up plan 1. Followup with primary care provider in 7-10 days 2. Followup with urology (Jennifer Herrera PA-C) on 09/07/16 at 1:[address] [address] Discharge Diet: Low fat, Low Sodium, Heart Healthy Discharge Activity: Other (resume home health PT) Patient Instructions Seek immediate medical attention if any new or worsening signs or symptoms occur. Follow-up Provider: Lisandro Iglesias MD Mid-level Provider: Jennifer Herrera PA-C Follow-up with Mid-level in: Other (09/07/16 at 1:15 PM) Time spent 35 min copies to: Jennifer Herrera PA-C; Lisandro Iglesias MD, [place] August 29, 2016 19:25
== END 2016-08-29 14:42 | disposition home or self-care (01) | DRG 871 ==
LOC: EDBD 17:41 → SED 17:41 → EDUNIT# 17:41 → PCC 20:32 → MPC 08-27 23:52
PROVIDERS: ADMIT Hospitalist; ATTEND Hospitalist
DX: A41.9 Sepsis, unspecified organism (principal); J96.01 Acute respiratory failure with hypoxia; N39.0 Urinary tract infection, site not specified; Z86.73 Personal history of transient ischemic attack (TIA), and cerebral infarction without residual deficits; E83.42 Hypomagnesemia; I10 Essential (primary) hypertension; R41.0 Disorientation, unspecified; M10.9 Gout, unspecified; K21.9 Gastro-esophageal reflux disease without esophagitis; B96.1 Klebsiella pneumoniae [K. pneumoniae] as the cause of diseases classified elsewhere

== ENCOUNTER 2016-09-14 07:35 | Day surgery (SDC) | payer MEDICARE ==
[2016-09-14] VITALS (8 sets, daily range): BP systolic 150–171; BP diastolic 73–95; PULSE 51–75; RESP 13–17; O2SAT 96–99
[~2016-09-14] VITALS: Ht 182.9 cm; Wt 83.6 kg
--- NOTE | 2016-09-14 06:36 | PCM.HPANE ---
Patient Data Surgeon Admitting Provider: Attending Provider:Bhumika Jordan MD Primary Care Physician:Lisandro Iglesias MD Other Provider:Lia Deckeringham Anesthesia Reason for Visit Bilateral Ureteral Stones Ht/WT & BMI Height (Feet): 6 Height (Inches): 0 Weight (Kilograms): 83.46 Body Mass Index 24.00 Allergies Coded Allergies: cerivastatin (Verified Allergy, Unknown, UNKNOWN, 09/13/16) codeine (Verified Allergy, Unknown, UNKNOWN, 09/13/16) cefprozil (Verified Adverse Reaction, Severe, Nausea,Vomiting, 09/13/16) Past Anesthesia History Anesthesia History: Denies:: Anesthesia Reactions, Malignant Hyperthermia Diabetes History Hx Diabetes?: No MRSA MRSA: No Medications Hypertension Medication: Yes (LISINOPRIL) Home Meds Incl Beta [place]: Yes (METOPROLOL) Active Scripts Ciprofloxacin (Cipro)500 Mg [id number] Mg PO BID #20 TABLET Prov:Arun Coffey 08/29/16 Reported Medications Magnesium Chloride (Slow-Mag)64 Mg [id number] Mg PO BID 08/25/16 Thiamine Mononitrate (Vitamin B-1)100 Mg [id number] Mg PO QAM 08/25/16 Folic Acid/Multivits-Min/Lut (Multi-Vitamin Gummies)1 Each Tab.chew2 Each PO QAM 08/25/16 Cholecalciferol (Vitamin D3) (Vitamin D3)2,000 Unit Capsule2,000 Unit PO QAM 08/25/16 Allopurinol 100 Mg [id number] Mg PO QAM 08/25/16 Metoprolol Tartrate 75 Mg [id number] Mg PO BID 08/25/16 Lisinopril 20 Mg [id number] Mg PO BID 08/25/16 Famotidine 20 Mg [id number] Mg PO BID 08/25/16 History History of ENT Problems?: Yes HEENT History: Denies:: Abnormal Airway Cataracts Difficult Intubation Dysphagia Glaucoma Hearing Problem Sinus Problem TMJ Denture Type: None Teeth Condition: Within Normal Limits Other HEENT Pertinent History: S/P TONSILLECTOMY Hx of Heart Problems?: Yes Cardiovascular History: Positive for:: Hypertension Denies:: Heart Murmur Hx of Respiratory Problem?: Yes Respiratory History: Positive for:: Dyspnea (HX OF RESP. FAILURE 08/2016 SEPSIS/UTI ADMISSION) Denies:: Use of C-PAP Machine Hx Neurologic Problems?: Yes Neurological History: Positive for:: CVA (recent admission to CCU for cellebelar stroke) Hx of GI Problems?: Yes Other GI Pertinent History: S/P ??B/L INGUINAL HERNIA RPR'S IN CHILDHOOD Hx of Problems?: Yes Genitourinary History: Positive for:: Kidney Stones (HX PRIOR STONES B/L URETERAL STONES=CURRENT PROBLEM) Urinary Tract Infection (hx bladder infection and UTI) Male Hx: Positive for:: Prostate Problems (BPH) Denies:: Scrotal Mass Testicular Surgery Skin History: Denies:: History Skin Disorders? Pressure Ulcers Hx Musculoskeletal Problems?: Yes Hx of Psycho/Social Problems?: No Hx Surgeries?: Yes (tonsillectomy, hernia repair) Hx Any Other Health Problems?: Yes Other History: Positive for:: Hospitalization (for stroke) Denies:: Cancer Endocrine Disease Thyroid Disease History Blood Transfusions: Denies:: Blood Transfusions Hx Diabetes: No Hx Substance Use: No Smoking Status: Former Smoker Have You Smoked inLast 12 mo: NoApprox How Many Cigarettes/day: 25YR HX Stop/Bang S-Snoring: Do You Snore Loudly: No T-Tired: feel tired, fatigued: Yes O-Obsered: Observed not breath: No P-Blood Pressure: treated: Yes B- Body Mass Index > 35 kg/m2: No A- Age over 50: Yes N- Neck Large Circumference: No G- Gender Male: Yes DUTCH Total Score: 4 DUTCH Risk Assessment: High Risk, =/>3 Yes DUTCH Category 4 OutPt Procedure: Yes Risk Assessment Category Category 1A: Patient has history of documented sleep apnea, and HAS NOT received any narcotic, sedative or anesthesia administration during this stay. Category 1B: Patient has history of documented sleep apnea, and HAS received any narcotic , sedative or anesthesia administration during this stay Category 2: Patient has SUSPECTED Obstructive Sleep Apnea, and HAS received any narcotic , sedative or anesthesia administration during this stay. Category 3: Patient has SUSPECTED Obstructive Sleep Apnea and HAS NOT received narcotic, sedative or anesthesia administration during this stay. Category 4: Outpatient in Procedural Areas with known sleep apnea or who screen positive for High Risk via the STOP/BANG questionnaire. Exam Exam General Appearance: Alert, Oriented X3, Cooperative, No Acute Distress HEENT/AIRWAY: MP 2 Lungs: Clear to Auscultation, Normal Air Movement Heart: Exam Unremarkable, Regular Rate/Rhythm, No Murmurs/Rubs/Gallops Plan Impression Patient chart reviewed, patient interviewed and anesthestic plan with risks, benefits, and alternatives discussed, and informed consent obtained. NPO per Anesth. Guidelines: Yes ASA Physical Status: ASA2 Mod Systemic Disease Anesthetic Plan: GA Bene/Risks/Altern/Consents: Yes HP Complete Prior to Induction: Yes Fer Oglesby MD Sep 14, 2016 06:36
[~2016-09-14 07:35] MED LIST: CHOL200047 PO; CIPR-231 PO; FAMO20TA4 PO; FOLI-89 PO; LISI-567 PO; METO75TA PO; SLO64 PO; THIA100T64 PO; ZYL100 PO; levoFLOXacin Inj 500 MG in IV Premix 1 EACH IV ONE
[2016-09-14] MEDS ORDERED: fentaNYL-PF 50 mCg/mL 2 mL Inj ONE (07:36)
[2016-09-14] MEDS ORDERED: Ondansetron 2 mg/mL 2 mL Inj ONE (07:36)
[2016-09-14] MEDS ORDERED: Propofol 10,000 mCg/mL 20 mL Inj ONE (07:36)
[2016-09-14] MEDS ORDERED: Dexamethasone 4 mg/mL Inj ONE (07:36)
[2016-09-14] MEDS: Lactated Ringer's 1,000 ML IV SCH ×2 (08:30→09:11)
[2016-09-14] MEDS ORDERED: Belladonna Alk-Opium 60 mg Rectal Suppository RECTAL ONE ×2 (08:56→09:36)
[2016-09-14] MEDS ORDERED: Lactated Ringer's 500 ML IV PRN (09:07)
[2016-09-14] MEDS ORDERED: Lactated Ringer's 1,000 ML IV SCH (09:07)
[2016-09-14] MEDS ORDERED: EPHEDrine Sulfate 50 mg/mL Inj IVPUSH PRN (09:10)
[2016-09-14] MEDS ORDERED: Labetalol 5 mg/mL 4 mL Inj IV PRN (09:10)
[2016-09-14] MEDS ORDERED: MetoCLOpramide 5 mg/mL 2 mL Inj IVPUSH PRN (09:10)
[2016-09-14] MEDS ORDERED: Atropine 0.4 mg/mL Inj IVPUSH PRN (09:10)
[2016-09-14] MEDS ORDERED: Phenylephrine 10,000 mCg/mL Inj IVPUSH PRN (09:10)
[2016-09-14] MEDS ORDERED: Dexamethasone 4 mg/mL Inj IVPUSH PRN (09:10)
[2016-09-14] MEDS ORDERED: Ondansetron 2 mg/mL 2 mL Inj IVPUSH PRN (09:10)
[2016-09-14] MEDS ORDERED: fentaNYL-PF 50 mCg/mL 2 mL Inj IVPUSH PRN (09:10)
[2016-09-14] MEDS ORDERED: HYDROmorphone 1 mg/mL Inj IVPUSH PRN (09:10)
[2016-09-14] MEDS ORDERED: HYDROcodone-APAP 5-325 mg Tablet PO PRN (09:55)
--- NOTE | 2016-09-14 10:00 | PCM.ANEP1 ---
Post Anesthesia PACU Phase 1 Assessment Vital Signs Vital Signs Date Time Temp Pulse Resp B/P Pulse Ox O2 Delivery O2 Flow Rate FiO2 09/14/16 07:59 35.4 51 16 159/73 99 Room Air Level of Alertness: Awake, talking ODOM's with Equal Strength: Yes Pain: No Nausea or Vomiting: No CV Function & Hydration Stable: No Airway Device: Oxygen Delivery: Simple Mask Lungs: Clear to Auscultation, Normal Air Movement PACU Phase 2 Assessment Complications: No Follow up Care: No Patient Instructions Provided: N/A Fer Oglesby MD Sep 14, 2016 10:00
--- NOTE | 2016-09-14 10:24 | OP ---
[address] [address] OPERATIVE REPORT PATIENT: DANIELA CRUZ : 1940 MR#: [id number] ADMIT: 09/14/2016 JOB ID: [id number] DATE OF SURGERY: SURGEON: Bhumika Jordan MD PREOPERATIVE DIAGNOSIS(ES): Bilateral ureteral calculi. POSTOPERATIVE DIAGNOSIS(ES): Left ureteral calculus. PROCEDURE: 1. Cystoscopy. 2. Bilateral ureteroscopy. 3. Left stone basketing with insertion of stent. ANESTHESIA: General anesthetic, Dr. . PROCEDURE DESCRIPTION: Under general anesthetic, patient was placed in lithotomy position. The genitalia was prepped and draped in a sterile manner. A 22-Samoan cystoscope was introduced through a stenotic meatus which required dilation with Kvng sounds. of the urethra was unremarkable. The ureteral orifices were normal in position and appearance. A 0.035 Glidewire was advanced into the right ureter to the level of the renal pelvis. Over this, a 15-Samoan balloon dilation catheter was used to dilate the distal ureter. A semi-rigid ureteroscope was then passed alongside the wire almost to the level of the ureteropelvic junction and no stone was seen. The distal ureteral calculus clearly had passed. The wire and scope were removed. A 0.035 Glidewire was then advanced to the level of the left renal pelvis. The ureter was then dilated to 15-Samoan with a balloon dilation catheter. A 7-Samoan semi-rigid ureteroscope was then advanced alongside the wire. At the junction of the proximal and middle 3rd ureters, the stone was seen. It was engaged with an NGage basket and withdrawn intact. A 6-Samoan 24 cm double-J stent was then passed over the wire. When the stent was confirmed to be in good position fluoroscopically, the wire was withdrawn. A B and O suppository was given for postoperative analgesia. The patient tolerated the procedure well and left the operating room in good condition.
[2016-09-14] MEDS ORDERED: Belladonna Alk-Opium 60 mg Rectal Suppository RECTAL SCH (20:30)
[2016-09-25 15:09] LABS: Stone Color Brown (.)
== END 2016-09-14 23:59 | disposition home or self-care (01) ==
LOC: SAS 07:35
PROVIDERS: ATTEND Urology
DX: N20.1 Calculus of ureter (principal); I10 Essential (primary) hypertension
CPT/HCPCS: 52320; 76000; 82360; C2617; J1100; J2405; J3010; J7120